=== PATIENT | male | born 1950 | race Hispanic/Latino ===

== ENCOUNTER 2018-08-23 17:07 | Inpatient (IN) | payer MEDICARE ==
[~2018-08-23] VITALS: Ht 167.6 cm; Wt 93.6 kg
[2018-08-23 17:42] LABS: BASOPHILS % (AUTO) 0.7 % (0.0-5.0); EOSINOPHILS % (AUTO) 0.5 % (0.0-8.0); HEMATOCRIT 22.4 % (42-54); LYMPHOCYTES % (AUTO) 13.9 % (21.0-51.0); MEAN CORPUSCULAR HEMOGLOBIN 31.4 pg (27.0-33.0); MEAN CORPUSCULAR HGB CONC 33.7 g/dL (32.0-36.0); MEAN CORPUSCULAR VOLUME 92.9 fL (79-99); MONOCYTES % (AUTO) 5.5 % (3.0-13.0); NEUTROPHILS % (AUTO) 79.4 % (40.0-77.0); NUCLEATED RED BLOOD CELLS 0.1 % (0.0-0.19); PLATELET COUNT (AUTO) 197 K/uL (130-400); RED BLOOD CELL COUNT(AUTO) 2.41 MIL/uL (4.50-6.20); RED CELL DISTRIBUTION WIDTH 14.2 % (11.0-15.5); WHITE BLOOD COUNT (AUTO) 14.5 K/uL (4.8-10.8)
[2018-08-23 17:54] LABS: POTASSIUM 5.4 mmol/L (3.5-5.1)
[2018-08-23] MEDS ORDERED: SODIUM CHLORIDE 0.9% 1000ML 1,000 ML IV ONE (17:54)
[2018-08-23] MEDS ORDERED: ACETAMINOPHEN EXTRA STRENGTH 500 MG TABLET ONE (17:55)
[2018-08-23 17:56] LABS: INR 1.01 (0.85-1.15); PARTIAL THROMBOPLASTIN TIME 34.1 SEC (26.3-35.5); PROTHROMBIN TIME 10.6 SEC (9.6-11.6)
[2018-08-23 17:58] LABS: ALBUMIN 2.4 g/dL (3.5-5.0); BILIRUBIN,TOTAL 0.6 mg/dL (0.2-1.0); TOTAL PROTEIN, SERUM 7.2 g/dL (6.0-8.3)
[2018-08-23] MEDS ORDERED: IPRATROPIUM/ALBUTEROL SULFATE 3 ML SOLUTION IH ONE (19:12)
[2018-08-23] MEDS ORDERED: AZITHROMYCIN 500MG+NS 250ML 250 ML IV ONE (19:44)
[2018-08-23] MEDS ORDERED: CEFTRIAXONE SODIUM 1 GM ONE (19:44)
[2018-08-23 20:04] LABS: APPEARANCE,URINE Clear (CLEAR); BILIRUBIN,URINE Negative (NEGATIVE); COLOR,URINE Yellow (YELLOW); GLUCOSE, URINE (UA) Negative (NEGATIVE); KETONES,URINE Negative (NEGATIVE); LEUKOCYTE ESTERASE ,URINE Negative (NEGATIVE); NITRATE,URINE Negative (NEGATIVE); OCCULT BLOOD,URINE Negative (NEGATIVE); PROTEIN,URINE POS 2+ (NEGATIVE)
[2018-08-23 20:37] LABS: BACTERIA,URINE Few /HPF (None Seen); COARSE GRANULAR CASTS,URINE 0-2 /LPF (None Seen); MUCUS,URINE Few LPF (None Seen); RBC,URINE None Seen /HPF (0-1); SQUAMOUS EPITHELIAL CELL,UR None Seen /HPF (0-2); WBC,URINE 0-1 /HPF (0-1)
[2018-08-23] MEDS ORDERED: SODIUM CHLORIDE 0.9% 1000ML 1,000 ML IV SCH (21:22)
[2018-08-23] MEDS: CEFTRIAXONE SODIUM 1 GM IV SCH (21:30)
[2018-08-23] MEDS: AZITHROMYCIN 500MG+NS 250ML 250 ML IV SCH (21:30)
[2018-08-23] MEDS ORDERED: ONDANSETRON HCL 4 MG/2 ML VIAL IV PRN (21:30)
[2018-08-23] MEDS ORDERED: ACETAMINOPHEN 325 MG TAB PO PRN ×2 (21:30)
[2018-08-23] MEDS ORDERED: ALBUTEROL SULFATE 0.083% 2.5 MG/3 ML INH IH ONE (21:33)
[2018-08-23] MEDS: ALBUTEROL SULFATE 0.083% 2.5 MG/3 ML INH IH SCH (22:00)
[2018-08-24] VITALS (7 sets, daily range): BP systolic 120–147; BP diastolic 57–66
[2018-08-24] MEDS ORDERED: ALBUTEROL SULFATE 0.083% 2.5 MG/3 ML INH IH ONE (01:17)
[2018-08-24] MEDS: ALBUTEROL SULFATE 0.083% 2.5 MG/3 ML INH IH SCH ×5 (02:00→21:26)
[2018-08-24] MEDS ORDERED: MINO2.5T3 PO (03:54)
[2018-08-24] MEDS ORDERED: BISO1TAB12 PO (03:54)
[2018-08-24] MEDS ORDERED: GABA-533 PO (03:54)
[2018-08-24] MEDS ORDERED: GLIM4TAB3 PO (03:54)
[2018-08-24] MEDS ORDERED: CARB200T5 PO (03:54)
[2018-08-24] MEDS ORDERED: GEMF600T4 PO (03:54)
[2018-08-24 05:34] LABS: BASOPHILS % (AUTO) 0.5 % (0.0-5.0); EOSINOPHILS % (AUTO) 0.2 % (0.0-8.0); LYMPHOCYTES % (AUTO) 10.7 % (21.0-51.0); MEAN CORPUSCULAR HEMOGLOBIN 30.6 pg (27.0-33.0); MEAN CORPUSCULAR VOLUME 92.8 fL (79-99); MONOCYTES % (AUTO) 9.7 % (3.0-13.0); NEUTROPHILS % (AUTO) 78.9 % (40.0-77.0); NUCLEATED RED BLOOD CELLS 0.1 % (0.0-0.19); PLATELET COUNT (AUTO) 191 K/uL (130-400); RED BLOOD CELL COUNT(AUTO) 2.22 MIL/uL (4.50-6.20); RED CELL DISTRIBUTION WIDTH 14.2 % (11.0-15.5); WHITE BLOOD COUNT (AUTO) 5.3 K/uL (4.8-10.8)
[2018-08-24 05:36] LABS: HEMATOCRIT 20.6 % (42-54)
[2018-08-24 06:01] LABS: HEMOGLOBIN A1C 6.9 % (4.0-6.0)
[2018-08-24] MEDS: FAMOTIDINE 20MG TAB 20 MG TAB PO SCH ×2 (10:14→22:38)
[2018-08-24] MEDS: ENOXAPARIN SODIUM 30 MG/0.3 ML SQ SCH (10:17)
[2018-08-24 15:41] LABS: % IRON SATURATION 5.7 % (30-44)
[2018-08-24] MEDS: GABAPENTIN 100 MG CAPSULE PO SCH (17:54)
[2018-08-24] MEDS: AZITHROMYCIN 500MG+NS 250ML 250 ML IV SCH (22:37)
[2018-08-24] MEDS: MINOXIDIL 2.5 MG TAB PO SCH (22:38)
[2018-08-24] MEDS: CEFTRIAXONE SODIUM 1 GM IV SCH (22:38)
[2018-08-24] MEDS: GEMFIBROZIL 600 MG TABLET PO SCH (22:38)
[2018-08-24] MEDS: CARBAMAZEPINE 200 MG TABLET PO SCH (22:38)
[2018-08-25] MEDS: ALBUTEROL SULFATE 0.083% 2.5 MG/3 ML INH IH SCH (01:56)
[2018-08-25 04:00] VITALS: BP 123/52
[2018-08-25 05:35] LABS: HEMATOCRIT 21.4 % (42-54); MEAN CORPUSCULAR VOLUME 90.9 fL (79-99); NUCLEATED RED BLOOD CELLS 0.1 % (0.0-0.19); PLATELET COUNT (AUTO) 207 K/uL (130-400); RED BLOOD CELL COUNT(AUTO) 2.36 MIL/uL (4.50-6.20); RED CELL DISTRIBUTION WIDTH 15.3 % (11.0-15.5)
[2018-08-25 05:42] LABS: CREATININE 3.8 mg/dL (0.5-1.5); MAGNESIUM 3.5 mg/dL (1.80-2.40); PHOSPHORUS 5.9 mg/dL (2.5-4.9); POTASSIUM 4.1 mmol/L (3.5-5.1); URIC ACID 10.7 mg/dL (2.6-7.2)
[2018-08-25] MEDS ORDERED: IPRATROPIUM 0.5 MG/2.5 ML INH IH ONE (07:16)
[2018-08-25 07:30] VITALS: BP 145/73
[2018-08-25] MEDS: MINOXIDIL 2.5 MG TAB PO SCH ×2 (08:53→20:55)
[2018-08-25] MEDS: FOLIC ACID/VITAMIN B COMP W-C 1 MG CAPSULE PO SCH (08:53)
[2018-08-25] MEDS: FAMOTIDINE 20MG TAB 20 MG TAB PO SCH ×2 (08:53→20:55)
[2018-08-25] MEDS: ENOXAPARIN SODIUM 30 MG/0.3 ML SQ SCH (08:53)
[2018-08-25] MEDS: GLIMEPIRIDE 2 MG TABLET PO SCH (08:54)
[2018-08-25] MEDS: HCTZ PO SCH (09:00)
[2018-08-25] MEDS: BISOPROLOL PO SCH (09:00)
[2018-08-25] MEDS: IPRATROPIUM 0.5 MG/2.5 ML INH IH SCH ×4 (10:04→21:14)
[2018-08-25 11:00] VITALS: BP 143/82
[2018-08-25] MEDS ORDERED: COMPOUND IV MISC 1 EACH IVSOLN MISC PRN (14:00)
[2018-08-25] MEDS ORDERED: EPOETIN ALFA 10,000 UNIT/ML VIAL SQ SCH ×2 (15:00→18:00)
[2018-08-25 16:00] VITALS: BP 150/75
[2018-08-25] MEDS: GABAPENTIN 100 MG CAPSULE PO SCH (17:08)
[2018-08-25 19:00] VITALS: BP 183/88
[2018-08-25] MEDS: AZITHROMYCIN 500MG+NS 250ML 250 ML IV SCH (20:54)
[2018-08-25] MEDS: CARBAMAZEPINE 200 MG TABLET PO SCH (20:55)
[2018-08-25] MEDS: CEFTRIAXONE SODIUM 1 GM IV SCH (20:55)
[2018-08-25] MEDS: GEMFIBROZIL 600 MG TABLET PO SCH (20:55)
[2018-08-25 22:05] VITALS: BP 162/89
[2018-08-26] VITALS (7 sets, daily range): BP systolic 145–184; BP diastolic 74–86
[2018-08-26] MEDS: IPRATROPIUM 0.5 MG/2.5 ML INH IH SCH ×6 (01:51→22:01)
[2018-08-26 05:05] LABS: BASOPHILS % (AUTO) 0.7 % (0.0-5.0); EOSINOPHILS % (AUTO) 2.4 % (0.0-8.0); HEMATOCRIT 23.4 % (42-54); LYMPHOCYTES % (AUTO) 12.3 % (21.0-51.0); MEAN CORPUSCULAR HEMOGLOBIN 29.4 pg (27.0-33.0); MEAN CORPUSCULAR HGB CONC 32.3 g/dL (32.0-36.0); MEAN CORPUSCULAR VOLUME 90.9 fL (79-99); MONOCYTES % (AUTO) 11.8 % (3.0-13.0); NEUTROPHILS % (AUTO) 72.8 % (40.0-77.0); NUCLEATED RED BLOOD CELLS 0.1 % (0.0-0.19); PLATELET COUNT (AUTO) 244 K/uL (130-400); RED BLOOD CELL COUNT(AUTO) 2.58 MIL/uL (4.50-6.20); RED CELL DISTRIBUTION WIDTH 15.7 % (11.0-15.5); WHITE BLOOD COUNT (AUTO) 6.7 K/uL (4.8-10.8)
[2018-08-26 05:08] LABS: POTASSIUM 4.6 mmol/L (3.5-5.1)
[2018-08-26] MEDS: MINOXIDIL 2.5 MG TAB PO SCH ×2 (08:56→21:07)
[2018-08-26] MEDS: FAMOTIDINE 20MG TAB 20 MG TAB PO SCH ×2 (08:56→21:07)
[2018-08-26] MEDS: IRON SUCROSE COMPLEX 100 MG in SODIUM CHLORIDE 0.9% 50 ML IV SCH (08:56)
[2018-08-26] MEDS: FOLIC ACID/VITAMIN B COMP W-C 1 MG CAPSULE PO SCH (08:56)
[2018-08-26] MEDS: GLIMEPIRIDE 2 MG TABLET PO SCH (08:56)
[2018-08-26] MEDS: ENOXAPARIN SODIUM 30 MG/0.3 ML SQ SCH (08:57)
[2018-08-26] MEDS: HCTZ PO SCH (09:00)
[2018-08-26] MEDS: BISOPROLOL PO SCH (09:00)
[2018-08-26] MEDS: CARBAMAZEPINE 200 MG TABLET PO SCH ×2 (09:08→21:07)
[2018-08-26] MEDS ORDERED: TELM80TA10 PO (09:14)
[2018-08-26] MEDS: GABAPENTIN 100 MG CAPSULE PO SCH (17:53)
[2018-08-26] MEDS: AZITHROMYCIN 500MG+NS 250ML 250 ML IV SCH (21:06)
[2018-08-26] MEDS: CEFTRIAXONE SODIUM 1 GM IV SCH (21:06)
[2018-08-26] MEDS: GEMFIBROZIL 600 MG TABLET PO SCH (21:07)
[2018-08-27] VITALS (8 sets, daily range): BP systolic 159–198; BP diastolic 67–94
[2018-08-27] MEDS: IPRATROPIUM 0.5 MG/2.5 ML INH IH SCH ×6 (02:53→21:07)
[2018-08-27] MEDS ORDERED: HYDRALAZINE HCL 20 MG/ML VIAL ONE (03:36)
[2018-08-27] MEDS ORDERED: HYDRALAZINE HCL 20 MG/ML VIAL IV PRN (03:45)
[2018-08-27 05:44] LABS: BASOPHILS % (AUTO) 0.8 % (0.0-5.0); EOSINOPHILS % (AUTO) 1.8 % (0.0-8.0); LYMPHOCYTES % (AUTO) 13.6 % (21.0-51.0); MEAN CORPUSCULAR HEMOGLOBIN 30.9 pg (27.0-33.0); MEAN CORPUSCULAR VOLUME 90.9 fL (79-99); MONOCYTES % (AUTO) 10.1 % (3.0-13.0); NEUTROPHILS % (AUTO) 73.7 % (40.0-77.0); PLATELET COUNT (AUTO) 288 K/uL (130-400); RED BLOOD CELL COUNT(AUTO) 2.65 MIL/uL (4.50-6.20); RED CELL DISTRIBUTION WIDTH 15.2 % (11.0-15.5); WHITE BLOOD COUNT (AUTO) 7.5 K/uL (4.8-10.8)
[2018-08-27 05:52] LABS: CREATININE 2.7 mg/dL (0.5-1.5)
[2018-08-27] MEDS: CARBAMAZEPINE 200 MG TABLET PO SCH ×2 (09:00→20:44)
[2018-08-27] MEDS: HCTZ PO SCH (09:00)
[2018-08-27] MEDS: BISOPROLOL PO SCH (09:00)
[2018-08-27] MEDS: GLIMEPIRIDE 2 MG TABLET PO SCH (10:37)
[2018-08-27] MEDS: FAMOTIDINE 20MG TAB 20 MG TAB PO SCH ×2 (10:37→20:44)
[2018-08-27] MEDS: MINOXIDIL 2.5 MG TAB PO SCH ×2 (10:37→20:44)
[2018-08-27] MEDS: FOLIC ACID/VITAMIN B COMP W-C 1 MG CAPSULE PO SCH (10:37)
[2018-08-27] MEDS: ENOXAPARIN SODIUM 30 MG/0.3 ML SQ SCH (10:48)
[2018-08-27] MEDS: IRON SUCROSE COMPLEX 100 MG in SODIUM CHLORIDE 0.9% 50 ML IV SCH (10:53)
[2018-08-27] MEDS: GABAPENTIN 100 MG CAPSULE PO SCH (18:38)
[2018-08-27] MEDS: GEMFIBROZIL 600 MG TABLET PO SCH (20:44)
[2018-08-27] MEDS: CEFTRIAXONE SODIUM 1 GM IV SCH (20:44)
[2018-08-27] MEDS: AZITHROMYCIN 500MG+NS 250ML 250 ML IV SCH (20:44)
[2018-08-28] MEDS: IPRATROPIUM 0.5 MG/2.5 ML INH IH SCH ×5 (02:08→18:36)
[2018-08-28 04:37] VITALS: BP 167/80
[2018-08-28 06:23] LABS: BASOPHILS % (AUTO) 0.4 % (0.0-5.0); EOSINOPHILS % (AUTO) 1.8 % (0.0-8.0); HEMATOCRIT 23.9 % (42-54); LYMPHOCYTES % (AUTO) 14.2 % (21.0-51.0); MEAN CORPUSCULAR HEMOGLOBIN 29.6 pg (27.0-33.0); MEAN CORPUSCULAR HGB CONC 32.5 g/dL (32.0-36.0); MEAN CORPUSCULAR VOLUME 91.3 fL (79-99); MONOCYTES % (AUTO) 12.4 % (3.0-13.0); NEUTROPHILS % (AUTO) 71.2 % (40.0-77.0); NUCLEATED RED BLOOD CELLS 0.1 % (0.0-0.19); PLATELET COUNT (AUTO) 271 K/uL (130-400); RED BLOOD CELL COUNT(AUTO) 2.62 MIL/uL (4.50-6.20); RED CELL DISTRIBUTION WIDTH 15.4 % (11.0-15.5); WHITE BLOOD COUNT (AUTO) 8.1 K/uL (4.8-10.8)
[2018-08-28 06:35] LABS: CREATININE 2.5 mg/dL (0.5-1.5); POTASSIUM 3.9 mmol/L (3.5-5.1)
[2018-08-28 08:44] VITALS: BP_SYST 135; BP_SYST 188; BP_DIAS 73; BP_DIAS 87
[2018-08-28] MEDS: FOLIC ACID/VITAMIN B COMP W-C 1 MG CAPSULE PO SCH (09:11)
[2018-08-28] MEDS: GLIMEPIRIDE 2 MG TABLET PO SCH (09:12)
[2018-08-28] MEDS: CARBAMAZEPINE 200 MG TABLET PO SCH (09:12)
[2018-08-28] MEDS: FAMOTIDINE 20MG TAB 20 MG TAB PO SCH (09:12)
[2018-08-28] MEDS: MINOXIDIL 2.5 MG TAB PO SCH (09:12)
[2018-08-28] MEDS: HCTZ PO SCH (09:14)
[2018-08-28] MEDS: BISOPROLOL PO SCH (09:14)
[2018-08-28] MEDS: ENOXAPARIN SODIUM 30 MG/0.3 ML SQ SCH (09:15)
[2018-08-28] MEDS: IRON SUCROSE COMPLEX 100 MG in SODIUM CHLORIDE 0.9% 50 ML IV SCH (09:15)
[2018-08-28 11:57] VITALS: BP 171/79
[2018-08-28 17:03] VITALS: BP 189/84
[2018-08-28] MEDS: GABAPENTIN 100 MG CAPSULE PO SCH (17:59)
[2018-08-28] MEDS ORDERED: AMOX-429 PO (18:01)
[2018-08-28 20:04] VITALS: BP 160/67
== END 2018-08-28 20:45 | disposition home or self-care (01) | DRG 871 ==
LOC: EDH 17:07 → OBSVTOIN 21:10 → EDHIP 21:10 → 3DH 08-24 02:56
PROVIDERS: ADMIT Internal Medicine; ATTEND Internal Medicine
PROC: 30233N1 Transfusion of Nonautologous Red Blood Cells into Peripheral Vein, Percutaneous Approach (ICD-10-PCS; principal; 2018-08-24)
DX: A41.9 Sepsis, unspecified organism (principal); J18.9 Pneumonia, unspecified organism; N17.0 Acute kidney failure with tubular necrosis; E46 Unspecified protein-calorie malnutrition; N18.4 Chronic kidney disease, stage 4 (severe); E11.21 Type 2 diabetes mellitus with diabetic nephropathy; E11.65 Type 2 diabetes mellitus with hyperglycemia; E11.22 Type 2 diabetes mellitus with diabetic chronic kidney disease; E03.9 Hypothyroidism, unspecified; E78.5 Hyperlipidemia, unspecified; E11.51 Type 2 diabetes mellitus with diabetic peripheral angiopathy without gangrene; D63.1 Anemia in chronic kidney disease; E87.70 Fluid overload, unspecified; I12.9 Hypertensive chronic kidney disease with stage 1 through stage 4 chronic kidney disease, or unspecified chronic kidney disease; I45.10 Unspecified right bundle-branch block; I51.7 Cardiomegaly; Z68.33 Body mass index [BMI] 33.0-33.9, adult; Z87.01 Personal history of pneumonia (recurrent)
CPT/HCPCS: 36415; 36430; 71045; 76770; 80048; 80053; 80156; 81001; 82270; 82550; 82728; 82948; 83036; 83540; 83550; 83605; 83735; 84100; 84484; 84550; 85025; 85027; 85610; 85730; 86850; 86900; 86901; 86922; 87040; 87804; 93005; 94640; 94664; 94667; 94668; 97039; 99291; A4218; J0360; J0456; J0696; J0885; J1650; J1756; J7030; P9016